=== PATIENT | male | born 1995 | race Two or more races ===

== ENCOUNTER 2025-04-24 16:21 | Emergency (ER) | payer OTHER ==
[~2025-04-24] VITALS: Ht 180.3 cm; Wt 95.4 kg
[2025-04-24 19:24] VITALS: BP 137/73; PULSE 60; RESP 18; TEMP 98.6; O2SAT 100
[2025-04-24] MEDS: ACETAMINOPHEN 500 MG TABLET PO ONE (20:57)
[2025-04-24] MEDS ORDERED: OxyCODONE HCL/ACETAMINOPHEN 5-325 MG TABLET PO ONE (21:30)
[2025-04-24] MEDS ORDERED: OxyCODONE HCL 20 MG ER TABLET PO ONE (21:45)
[2025-04-24] MEDS: OxyCODONE HCL 10 MG ER TABLET PO ONE (22:55)
== END 2025-04-24 22:58 | disposition home or self-care (01) ==
LOC: EMS 16:21
DX: S62.354A Nondisplaced fracture of shaft of fourth metacarpal bone, right hand, initial encounter for closed fracture (principal); S62.336A Displaced fracture of neck of fifth metacarpal bone, right hand, initial encounter for closed fracture; F11.90 Opioid use, unspecified, uncomplicated; Z98.890 Other specified postprocedural states; Y04.0XXA Assault by unarmed brawl or fight, initial encounter; Y93.89 Activity, other specified; Y92.89 Other specified places as the place of occurrence of the external cause; Y99.8 Other external cause status
CPT/HCPCS: 99283